=== PATIENT | female | born 2000 | race Caucasian/White ===

== ENCOUNTER 2018-07-03 13:33 | Emergency (ER) | payer BC ==
--- NOTE | 2018-07-03 13:50 | EDPHY ---
H & P Smoking Status: Never smoked Time Seen by Provider: 07/03/18 13:42 HPI/ROS: CHIEF COMPLAINT: "I think I have the flu" HISTORY OF PRESENT ILLNESS: 18-year-old immunocompetent female with no seasonal influenza vaccination complaining of less than 24 hr of flu-like symptoms, myalgias, fever, rhinorrhea, nonproductive cough, loose stool. No melena hematochezia No nuchal rigidity. No headache. No back or flank pain. No urinary abnormality. No abdominal pain. No nausea or vomiting. No rash. PRIMARY CARE PROVIDER: Student [facility] REVIEW OF SYSTEMS: 10 systems reviewed and negative with the exception of the elements mentioned in the history of present illness PAST MEDICAL & SURGICAL HISTORY: No seasonal influenza vaccination SOCIAL HISTORY: Nonsmoker. Student. PHYSICAL EXAM (Prior to examination, patient consented to physical exam, hands were washed and my usual and customary physical exam procedures followed) 1) GENERAL: Well-developed, well-nourished, alert and oriented. Appears to be in no acute distress. Smiling, answering questions appropriately. Appears well. Appears nontoxic. 2) HEAD: Normocephalic, atraumatic 3) HEENT: Pupils equal, round, reactive to light bilaterally. Sclera anicteric. Nasopharynx, oropharynx, clear, no lesions. Moist Mucous membranes. Tonsillar enlargement or exudate. Ears bilaterally with normal tympanic membranes. No evidence of otitis media otitis externa. 4) NECK: Full range of motion, no meningeal signs. No adenopathy. 5) LUNGS: Clear auscultation bilaterally, no wheezes, no rhonchi, no retractions. 6) HEART: Regular rate and rhythm, no murmur, no heave, no gallop. 7) ABDOMEN: No guarding, no rebound, no focal tenderness, negative McBurney's, negative Jenkins's, negative Rovsing's, negative peritoneal sign, 8) MUSCULOSKELETAL: Moving all extremities, no focal areas of tenderness, no obvious trauma. No peripheral edema or discoloration. 9) BACK: No CVA tenderness, no midline vertebral tenderness, no fluctuance, no step-off, no obvious trauma, no visual or palpable abnormality. 10) SKIN: No rash, no petechiae. 11) Psychiatric: Patient is oriented X 3, there is no agitation. 12) NEURO: Awake, alert, and oriented to person, place and time. Answers questions appropriately. There were no obvious focal neurologic abnormalities. No cerebellar dysfunction. Normal steady gait. Upper and lower extremities bilaterally with strength 5 / 5, reflexes 2+. DIFFERENTIAL DIAGNOSIS: In no particular order including but not limited to influenza, pneumonia, meningitis, bronchitis, viral URI (Mesha Chacon) Constitutional: Initial Vital Signs Temperature (C) 36.5 C 07/03/18 13:37 Heart Rate 99 07/03/18 13:37 Respiratory Rate 16 07/03/18 13:37 Blood Pressure 114/74 07/03/18 13:37 O2 Sat (%) 99 07/03/18 13:37 O2 Delivery Mode Room Air Allergies/Adverse Reactions: No Known Allergies Allergy (Unverified 07/03/18 13:36) Home Medications: Medication Instructions Recorded Bcp 07/03/18 Ibuprofen 07/03/18 Oseltamivir Phosphate [Tamiflu] 75 mg PO BIDMEAL 5 Days cap 07/03/18 PRISTIQ 07/03/18 VYVANSE 07/03/18 MDM/Departure - MDM ED Course/Re-evaluation: High clinical suspicion for influenza. Recommended empiric treatment with Tamiflu as she was with within the treatment window. We discussed diagnostic testing which patient agrees she does not feel she necessitates as have a high clinical suspicion for influenza and no influenza vaccination. Doubt meningitis. The patient has a nontender abdomen, no complaints of abdominal pain, doubt acute surgical abdominal pathology. (Mesha Chacon) The patient was evaluated and managed by the physician medical research assistant. I have reviewed this chart and I agree with the findings and plan of care as documented , as indicated by my signature. I am the secondary supervising physician. ( Nika Aguila) - Depart Disposition: Home, Routine, Self-Care Clinical Impression: Influenza-like illness Condition: Good Instructions: Influenza (ED) Additional Instructions: Return to the emergency department immediately for change in breathing habits, change in voice, change in swallowing habits, change in mental status, or any other symptoms that concern you. Adult Pain & Fever Control: We recommend Acetaminophen (Tylenol) and Ibuprofen (Motrin,Advil) for pain and fever control. When fever is high or pain severe, both drugs can be used at the same time, but at different intervals. Please note the time differences. Your dose is: Acetaminophen 650mg every 4 to 6 hours Ibuprofen 6006mg every 6 hours with food OR Note: do not take Acetaminophen with Hydrocodone (Vicodin, Lortab) or Oycodone (Percocet). These medications also contain Acetaminophen. No more than 3000mg of Acetaminophen should be taken in 24 hours (for an adult). Stand Alone Forms: School Excuse Prescriptions: Oseltamivir Phosphate [Tamiflu] 75 mg PO BIDMEAL 5 Days cap Referrals: RANJITH Rhodes,. [Clinic] - 2-3 days, call for appt.
[2018-07-03 14:41] VITALS: BP 116/71
== END 2018-07-03 14:43 | disposition home or self-care (01) ==
DX: R50.9 Fever, unspecified (principal); R05 Cough; R09.81 Nasal congestion; R19.7 Diarrhea, unspecified

== ENCOUNTER 2018-09-19 14:19 | Emergency (ER) | payer BC ==
--- NOTE | 2018-09-19 15:00 | EDPHY ---
H & P Stated Complaint: sent from [facility] with + d dimer Time Seen by Provider: 09/19/18 14:46 HPI/ROS: CHIEF COMPLAINT: Chest pain, elevated D-dimer HISTORY OF PRESENT ILLNESS: The patient is referred to the ED from the [facility] for evaluation chest pain and an abnormal D-dimer. The patient has had a several week history of chest pain, cough, upper respiratory infectious symptoms and vague abdominal pain. She has been treated for bronchitis with steroids and recently prednisone and a Z-Hermelindo. The patient has had complaints of mid sternal chest pain for the past discomfort which is pleuritic in nature. There are some symptoms associated with swallowing. Patient has been using adty-ufe-hntfkym medications for heartburn. The patient does smoke occasionally. She is on oral contraceptive pills. She denies any asymmetric calf pain or swelling. She is planning on following up with a sewer inspector in the next week for evaluation of chronic dyspepsia. REVIEW OF SYSTEMS: A comprehensive 10 point review of systems is otherwise negative aside from elements mentioned in the history of present illness. Source: Patient Exam Limitations: No limitations - Personal History LMP (Females 10-55): 8-14 Days Ago Current Tetanus Diphtheria and Acellular Pertussis (TDAP): Yes - Medical/Surgical History Hx Asthma: No Hx Chronic Respiratory Disease: No Hx Diabetes: No Hx Cardiac Disease: No Hx Renal Disease: No Hx Cirrhosis: No Hx Alcoholism: No Hx HIV/AIDS: No Hx Splenectomy or Spleen Trauma: No Other PMH: tonsilectomy, adenoidectomy - Social History Smoking Status: Current some day smoker - Physical Exam Exam: General Appearance: Tearful, anxious Eyes: Pupils equal and round no pallor or injection ENT, Mouth: Mucous membranes moist Respiratory: There are no retractions, lungs are clear to auscultation Cardiovascular: Regular rate and rhythm Gastrointestinal: Abdomen is soft and nontender, no masses, bowel sounds normal Neurological: A&O, normal motor function, normal sensory exam, normal cranial nerves Skin: Warm and dry, no rashes Musculoskeletal: Neck is supple nontender Extremities: No clinical evidence of DVT Constitutional: Initial Vital Signs Temperature (C) 36.6 C 09/19/18 14:24 Heart Rate 106 H 09/19/18 14:24 Respiratory Rate 19 09/19/18 14:24 Blood Pressure 104/77 09/19/18 14:24 O2 Sat (%) 97 09/19/18 14:24 O2 Delivery Mode Room Air Allergies/Adverse Reactions: No Known Allergies Allergy (Verified 09/19/18 14:23) Home Medications: Medication Instructions Recorded Bcp 07/03/18 PRISTIQ 07/03/18 VYVANSE 07/03/18 Buspar (*) 09/19/18 Medical Decision Making ED Course/Re-evaluation: I reviewed the patient's outpatient records from the [facility]. The patient presents to the ED with multiple complaints suggestive of chronic bronchitis as well as pleuritic chest pain. Additionally she has been struggling with some chronic GI complaints. The patient was noted to have an elevated D-dimer. She was taken for CT pulmonary angiogram which demonstrated no evidence of a PE. The patient remained hemodynamically stable throughout her stay in the emergency department. I find her abdominal examination to be benign. She is in a normal sinus rhythm. The patient will be discharged home with instructions to continue her regular outpatient medications. She is scheduled to see a sewer inspector in the coming week. Differential Diagnosis: Differential diagnosis considered includes pulmonary embolism, pleurisy, pneumonia, bronchitis - Data Points Laboratory Results: 09/19/18 14:59 POC Hgb 13.9 gm/dL gm/dL (12.6-16.3) POC Hct 41 % % (38-47) POC Sodium 138 mEq/L mEq/L (135-145) POC Potassium 3.8 mEq/L mEq/L (3.3-5.0) POC Chloride 104 mEq/L mEq/L (97-110) POC Total CO2 21 mEq/L L mEq/L (22-31) POC BUN 4 mg/dL L mg/dL (7-23) POC Creatinine 0.7 mg/dL mg/dL (0.6-1.0) POC Glucose 90 mg/dL mg/dL (70-100) Point of Care Test Results: Chemistry 09/19/18 14:59 POC Sodium 138 mEq/L mEq/L (135-145) POC Potassium 3.8 mEq/L mEq/L (3.3-5.0) POC Chloride 104 mEq/L mEq/L (97-110) POC Total CO2 21 mEq/L L mEq/L (22-31) POC BUN 4 mg/dL L mg/dL (7-23) POC Creatinine 0.7 mg/dL mg/dL (0.6-1.0) POC Glucose 90 mg/dL mg/dL (70-100) ISTAT H&H 09/19/18 14:59 POC Hgb 13.9 gm/dL gm/dL (12.6-16.3) POC Hct 41 % % (38-47) Departure - Departure Disposition: Home, Routine, Self-Care Clinical Impression: Pleurisy Condition: Good Instructions: Pleurisy (ED) Additional Instructions: 1. Please continue your regular outpatient medications. 2. The CT scan demonstrates no evidence of a pulmonary embolism or other acute abnormality. 3. Return to the ED for markedly worsening symptoms or other concerns. Referrals: [facility] [Other] - As per Instructions
[2018-09-19] MEDS ORDERED: IOPAMIDOL (ISOVUE 370) 100 ML BTL IV ONE (15:21)
[2018-09-19 16:06] VITALS: BP 111/71
== END 2018-09-19 16:06 | disposition home or self-care (01) ==
DX: R09.1 Pleurisy (principal); R79.1 Abnormal coagulation profile; F17.200 Nicotine dependence, unspecified, uncomplicated
CPT/HCPCS: 82435-PO; 82565-PO; 82947-PO; 84132-PO; 84295-PO; 84520-PO; 85014-ER; Q9967